=== PATIENT | male | born 1985 | race American Indian/Alaskan Native ===

== ENCOUNTER 2017-04-22 01:18 | Emergency (ER) | payer OTHER ==
[~2017-04-22] VITALS: Ht 170.2 cm; Wt 145.0 kg
[~2017-04-22 01:18] MED LIST: AMLO5TAB2 PO; FERR325T18 PO; LISI-167 PO; LISI-170 PO; LISI40TA PO; METF500T PO; PHEN1SUP77 PR
[2017-04-22] MEDS ORDERED: ALLERGY MED (01:51)
[2017-04-22 02:15] LABS: HEMATOCRIT 42.5 % (39.2-51.8); HEMOGLOBIN 13.6 g/dL (13.7-18.0); WHITE BLOOD COUNT 4.5 x10^3/uL (3.4-10)
[2017-04-22 02:22] LABS: BLOOD UREA NITROGEN 8 mg/dL (7-18)
[2017-04-22 03:29] VITALS: BP 154/72
[2017-04-22] MEDS ORDERED: ONDANSETRON 2MG/ML, 2ML ONE (03:38)
== END 2017-04-22 03:32 | disposition home or self-care (01) ==
LOC: ED 03:05
DX: M54.5 Low back pain (principal); I10 Essential (primary) hypertension; E11.9 Type 2 diabetes mellitus without complications; E87.6 Hypokalemia; J45.909 Unspecified asthma, uncomplicated; E66.9 Obesity, unspecified
CPT/HCPCS: 36415; 74176; 80048; 81001; 82040; 85025; 99285

== ENCOUNTER 2017-06-28 12:52 | Emergency (ER) | payer OTHER ==
[~2017-06-28] VITALS: Ht 172.7 cm; Wt 150.4 kg
[~2017-06-28 12:52] MED LIST changes: +ALLERGY MED
[2017-06-28 12:56] VITALS: BP 183/95
[2017-06-28] MEDS ORDERED: LIDOCAINE 1%, 20ML SQ ONE (13:30)
== END 2017-06-28 14:05 | disposition home or self-care (01) ==
LOC: ED 13:40
DX: L02.213 Cutaneous abscess of chest wall (principal)
CPT/HCPCS: 10060; 82962; 99283; J3490

== ENCOUNTER 2017-07-01 12:53 | Emergency (ER) | payer OTHER ==
[~2017-07-01] VITALS: Ht 172.7 cm; Wt 149.1 kg
[2017-07-01 12:56] VITALS: BP 180/87
== END 2017-07-01 14:13 | disposition home or self-care (01) ==
LOC: ED 13:40
DX: L02.213 Cutaneous abscess of chest wall (principal); E11.9 Type 2 diabetes mellitus without complications; I10 Essential (primary) hypertension; J45.909 Unspecified asthma, uncomplicated
CPT/HCPCS: 99283

== ENCOUNTER 2019-01-15 22:24 | Emergency (ER) | payer OTHER ==
[~2019-01-15] VITALS: Ht 172.7 cm; Wt 148.8 kg
[~2019-01-15 22:24] MED LIST changes: +AMLO-150 PO; -AMLO5TAB2 PO
[2019-01-15] MEDS ORDERED: LORazepam 1MG TABLET PO ONE (23:30)
[2019-01-15] MEDS ORDERED: LORazepam 1MG TABLET ONE (23:32)
[2019-01-16 00:08] LABS: BASOPHILS # (AUTO) 0.12 x10^3/uL (0-0.1); BASOPHILS % (AUTO) 2 % (0-1); EOSINOPHILS # (AUTO) 0.12 x10^3/uL (0-0.4); EOSINOPHILS % (AUTO) 2 % (1-7); LYMPHOCYTES # (AUTO) 2.75 x10^3/uL (1-3.4); LYMPHOCYTES % (AUTO) 50 % (22-44); MD NO; MEAN CORPUSCULAR HEMOGLOBIN 30.2 pg (27.5-34.5); MEAN CORPUSCULAR HGB CONC 32.1 g/dL (33.2-36.2); MEAN CORPUSCULAR VOLUME 94.1 fL (81-97); MEAN PLATELET VOLUME 6.7 fL (7.4-10.4); MONOCYTES # (AUTO) 0.46 x10^3/uL (0.2-0.8); MONOCYTES % (AUTO) 8 % (2-9); NEUTROPHILS # (AUTO) 2.11 x10^3/uL (1.8-6.8); NEUTROPHILS % (AUTO) 38 % (42-75); PLATELET COUNT 245 x10^3/uL (130-400); RED BLOOD COUNT 4.64 x10^6/uL (4.38-5.82)
[2019-01-16 00:15] VITALS: BP 129/70
--- NOTE | 2019-01-16 00:15 | NUR ---
PT PACING AROUND ROOM, RESP RATE 32, SPO2 96%. PT STATES THAT MEDS DID NOT WORK FOR HIM AND THAT HE FEELS ANXIOUS STILL. MICHELLE BELL NOTIFIED.
[2019-01-16 00:16] LABS: ALANINE AMINOTRANSFERASE 43 U/L (12-78); ALBUMIN 3.2 g/dL (3.4-5.0); ANION GAP 12 mmol/L (5-15); CALCIUM 7.6 mg/dL (8.5-10.1); CHLORIDE 107 mmol/L (98-107); CREATININE 0.87 mg/dL (0.7-1.3)
[2019-01-16 00:21] LABS: ALKALINE PHOSPHATASE 87 U/L (45-117); BILIRUBIN,TOTAL 0.3 mg/dL (0.2-1.0); TROPONIN I < 0.015 ng/mL (0.000-0.045)
[2019-01-16 00:23] LABS: AMPHETAMINE SCREEN, URINE Negative (Negative); BARBITURATE SCREEN, URINE Negative (Negative); BENZODIAZEPINE SCREEN, URINE Negative (Negative); CANNABINOID SCREEN, URINE Negative (Negative); COCAINE SCREEN, URINE Negative (Negative); METHADONE SCREEN, URINE Negative (Negative); OPIATE SCREEN, URINE Negative (Negative)
[2019-01-16 01:59] LABS: D-DIMER 0.39 ug/mlFEU (0.00-0.52); INTERNATIONAL NORMALIZED RATIO 1.13 (0.93-1.1); PROTHROMBIN TIME 11.8 Seconds (9.6-11.5)
== END 2019-01-16 02:31 | disposition home or self-care (01) ==
LOC: ED 01-16 02:00
DX: F41.1 Generalized anxiety disorder (principal); F10.120 Alcohol abuse with intoxication, uncomplicated; F17.210 Nicotine dependence, cigarettes, uncomplicated; I10 Essential (primary) hypertension
CPT/HCPCS: 36415; 71046; 80053; 80307; 83880; 84443; 84484; 85025; 85379; 85610; 85730; 93005; 99284

== ENCOUNTER 2019-01-16 21:59 | Emergency (ER) | payer SELFPAY ==
[~2019-01-16] VITALS: Ht 172.7 cm; Wt 148.8 kg
[2019-01-16 22:00] VITALS: BP 160/88
== END 2019-01-16 22:30 | disposition home or self-care (01) ==
LOC: ED 22:08
DX: F41.1 Generalized anxiety disorder (principal); F10.220 Alcohol dependence with intoxication, uncomplicated; I10 Essential (primary) hypertension; J45.909 Unspecified asthma, uncomplicated; E66.9 Obesity, unspecified
CPT/HCPCS: 99284

== ENCOUNTER 2019-02-16 18:11 | Emergency (ER) | payer OTHER ==
[~2019-02-16] VITALS: Ht 172.7 cm; Wt 174.0 kg
--- NOTE | 2019-02-16 18:31 | NUR ---
BIB [facility]. C/O cough, BLE edema, generalized weakness, and NELSON. Patient drinks about 1/5 vodka per day. C/O anxiety. 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 Will continue to monitor.
[2019-02-16 18:43] LABS: BASOPHILS # (AUTO) 0.04 x10^3/uL (0-0.1); BASOPHILS % (AUTO) 1 % (0-1); EOSINOPHILS # (AUTO) 0.15 x10^3/uL (0-0.4); EOSINOPHILS % (AUTO) 2 % (1-7); LYMPHOCYTES # (AUTO) 3.06 x10^3/uL (1-3.4); LYMPHOCYTES % (AUTO) 46 % (22-44); MD NO; MEAN CORPUSCULAR HEMOGLOBIN 30.8 pg (27.5-34.5); MEAN CORPUSCULAR HGB CONC 32.7 g/dL (33.2-36.2); MEAN CORPUSCULAR VOLUME 94.2 fL (81-97); MEAN PLATELET VOLUME 6.7 fL (7.4-10.4); MONOCYTES # (AUTO) 0.72 x10^3/uL (0.2-0.8); MONOCYTES % (AUTO) 11 % (2-9); NEUTROPHILS # (AUTO) 2.69 x10^3/uL (1.8-6.8); NEUTROPHILS % (AUTO) 40 % (42-75); PLATELET COUNT 239 x10^3/uL (130-400); RED BLOOD COUNT 4.67 x10^6/uL (4.38-5.82); RED CELL DISTRIBUTION WIDTH 16.8 % (9.4-14.8)
[2019-02-16 18:54] LABS: ALANINE AMINOTRANSFERASE 84 U/L (12-78); ALBUMIN 3.3 g/dL (3.4-5.0); ANION GAP 10 mmol/L (5-15); CALCIUM 7.9 mg/dL (8.5-10.1); CHLORIDE 109 mmol/L (98-107); CREATININE 1.13 mg/dL (0.7-1.3)
[2019-02-16 18:58] LABS: ALKALINE PHOSPHATASE 106 U/L (45-117); BILIRUBIN,TOTAL 0.4 mg/dL (0.2-1.0); TOTAL PROTEIN 8.7 g/dL (6.4-8.2); TROPONIN I < 0.015 ng/mL (0.000-0.045)
--- NOTE | 2019-02-16 19:10 | NUR ---
MD at bedside discussing POC.
[2019-02-16 19:40] VITALS: BP 137/79
== END 2019-02-16 19:51 | disposition home or self-care (01) ==
LOC: ED 19:35
DX: F41.0 Panic disorder [episodic paroxysmal anxiety] (principal); F10.10 Alcohol abuse, uncomplicated; R05 Cough; I10 Essential (primary) hypertension; F17.200 Nicotine dependence, unspecified, uncomplicated
CPT/HCPCS: 36415; 71045; 80053; 80307; 83735; 83880; 84484; 85025; 93005; 99284

== ENCOUNTER 2020-10-14 15:07 | Inpatient (IN) | payer MEDICAID ==
[~2020-10-14] VITALS: Ht 172.7 cm; Wt 153.0 kg
[~2020-10-14 15:07] MED LIST changes: +ATOR40TA78 PO; +CETI10TA18 PO; +HYDR-826 PO; -LISI40TA PO; +LISI40TA9 PO
[2020-10-14] MEDS ORDERED: ASPIRIN 81 MG TABLET CHEW ONE (15:59)
[2020-10-14] MEDS ORDERED: SODIUM CHLORIDE FLUSH 10ML SYR IVF ONE (16:00)
[2020-10-14] MEDS ORDERED: ASPIRIN 81 MG TABLET CHEW PO ONE (16:00)
--- NOTE | 2020-10-14 16:00 | NUR ---
PT BIB MOM VIA POV. PT REPORTS HAVING SOB W EXERTION WORSE FOR THE PAST FEW DAYS. PT O2 SAT AT 84% RA, PT PLACED ON 2L AND NOW SATTING AT 94%. PT HAS HX OF ASTHMA AND HTN. PT RESTING IN [place], MONITORING IN PLACE, NADN AT THIS TIME, PT REFUSING TO LAY IN GURNEY, PT EDUCATED ON FALL RISK AND IMPORTANCE OF STAYING IN [place], WCTM. 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 PT'S MOM AT BEDSIDE.
[2020-10-14 16:29] LABS: BASOPHILS % (AUTO) 1 % (0-1); EOSINOPHILS % (AUTO) 6 % (1-7); LYMPHOCYTES % (AUTO) 13 % (22-44); MEAN CORPUSCULAR HGB CONC 32.1 g/dL (33.2-36.2); MEAN PLATELET VOLUME 8.3 fL (7.4-10.4); MONOCYTES % (AUTO) 11 % (2-9); NEUTROPHILS % (AUTO) 70 % (42-75); PLATELET COUNT 73 x10^3/uL (130-400); RED BLOOD COUNT 4.91 x10^6/uL (4.38-5.82)
[2020-10-14 16:41] LABS: ALANINE AMINOTRANSFERASE 37 U/L (12-78); ALBUMIN 3.2 g/dL (3.4-5.0); ANION GAP 12 mmol/L (5-15); CALCIUM 6.1 mg/dL (8.5-10.1); CHLORIDE 104 mmol/L (98-107); CREATININE 0.87 mg/dL (0.7-1.3)
[2020-10-14 16:46] LABS: ALKALINE PHOSPHATASE 118 U/L (45-117); BILIRUBIN,TOTAL 2.7 mg/dL (0.2-1.0); TOTAL PROTEIN 9.5 g/dL (6.4-8.2); TROPONIN I < 0.015 ng/mL (0.000-0.045)
[2020-10-14 17:00] LABS: MD MORPH REVIEW ONLY
[2020-10-14 17:01] LABS: ANISOCYTOSIS 1+; OVALOCYTES 1+; TARGET CELLS 1+
[2020-10-14 17:02] LABS: <PLATELET ESTIMATE> DECREASED; <PLT MORPHOLOGY> NORMAL PLT MORPH; POLYCHROMASIA 1+
[2020-10-14] MEDS ORDERED: hydrALAzine 20 MG/ML, 1ML IV ONE (18:30)
--- NOTE | 2020-10-14 18:31 | NUR ---
BREAK RN: PT GOING TO CT.
[2020-10-14] MEDS ORDERED: OMNIPAQUE 350 MG/ML, 100ML BOTTLE ONE (18:46)
[2020-10-14] MEDS ORDERED: hydrALAzine 20 MG/ML, 1ML ONE (19:04)
--- NOTE | 2020-10-14 19:16 | NUR ---
PT RESTING IN [facility], MONITORING IN PLACE, MEDICATED PER EMAR, PER PT NO PAIN OR QUESTIONS AT THIS TIME, WCTM.
[2020-10-14] MEDS ORDERED: POTASSIUM CHLORIDE 20 MEQ TAB.ER.PRT ONE (19:25)
[2020-10-14] MEDS ORDERED: FUROSEMIDE 40 MG/4 ML ONE (19:25)
[2020-10-14] MEDS ORDERED: POTASSIUM CHLORIDE 20 MEQ TAB.ER.PRT PO ONE (19:30)
[2020-10-14] MEDS ORDERED: FUROSEMIDE 40 MG/4 ML IV ONE (19:30)
[2020-10-14] MEDS ORDERED: POTASSIUM CHLORIDE 20 MEQ, MAGNESIUM SULFATE 2 GM, THIAMINE 200 MG, FOLIC ACID 1 MG in ... IV ONE (19:30)
[2020-10-14] MEDS ORDERED: POTASSIUM CHLORIDE 20 MEQ, MAGNESIUM SULFATE 2 GM, THIAMINE 200 MG, FOLIC ACID 1 MG, MV... IV ONE (19:30)
--- NOTE | 2020-10-14 19:55 | NUR ---
PER [facility], DO NOT ADMIN BANANA BAG.
[2020-10-14 20:05] VITALS: BP 169/102
[2020-10-14] MEDS ORDERED: POLYETHYLENE GLYCOL 17 GM PACKET PO PRN (20:30)
[2020-10-14] MEDS ORDERED: BISACODYL 10 MG SUPP PR PRN (20:30)
[2020-10-14] MEDS ORDERED: hydrALAzine 20 MG/ML, 1ML IVPush PRN (20:30)
[2020-10-14] MEDS ORDERED: ONDANSETRON 2MG/ML, 2ML IVPush PRN (20:30)
[2020-10-14] MEDS ORDERED: MAGNESIUM SULFATE PMX 4GM/100M 100 ML IVPB ONE (20:30)
[2020-10-14] MEDS ORDERED: CHLORDIAZEPOXIDE 25 MG CAPSULE PO PRN (21:00)
[2020-10-14] MEDS ORDERED: LORazepam 2 MG/ML, 1ML IVPush PRN (21:00)
[2020-10-14 22:45] VITALS: BP 126/71
[2020-10-14] MEDS: ATORVASTATIN 40 MG TABLET PO SCH (22:46)
[2020-10-14] MEDS: CARVEDILOL 12.5 MG TABLET PO SCH (22:46)
[2020-10-14] MEDS: HEPARIN 5,000 UNITS/ML, 1ML SQ SCH (22:46)
[2020-10-14] MEDS: THIAMINE 100MG TABLET PO SCH (22:47)
[2020-10-14] MEDS: SODIUM CHLORIDE FLUSH 10ML SYR IVF SCH (22:50)
[2020-10-14 22:57] LABS: INTERNATIONAL NORMALIZED RATIO 1.44 (0.93-1.1); PROTHROMBIN TIME 15.3 Seconds (9.6-11.5)
[2020-10-14 23:02] LABS: TROPONIN I < 0.015 ng/mL (0.000-0.045)
[2020-10-15 00:31] VITALS: BP 137/67
[2020-10-15 05:02] LABS: BASOPHILS % (AUTO) 4 % (0-1); EOSINOPHILS % (AUTO) 4 % (1-7); LYMPHOCYTES % (AUTO) 15 % (22-44); MEAN CORPUSCULAR HGB CONC 31.9 g/dL (33.2-36.2); MEAN PLATELET VOLUME 8.9 fL (7.4-10.4); MONOCYTES % (AUTO) 12 % (2-9); NEUTROPHILS % (AUTO) 66 % (42-75); PLATELET COUNT 51 x10^3/uL (130-400); RED BLOOD COUNT 4.45 x10^6/uL (4.38-5.82)
[2020-10-15 05:09] LABS: ALBUMIN 2.7 g/dL (3.4-5.0); ANION GAP 10 mmol/L (5-15); CHLORIDE 102 mmol/L (98-107)
[2020-10-15 05:15] LABS: ALANINE AMINOTRANSFERASE 30 U/L (12-78); ALKALINE PHOSPHATASE 97 U/L (45-117); BILIRUBIN,TOTAL 2.6 mg/dL (0.2-1.0); CREATININE 0.65 mg/dL (0.7-1.3); TOTAL PROTEIN 7.9 g/dL (6.4-8.2); TROPONIN I 0.016 ng/mL (0.000-0.045)
[2020-10-15] MEDS: CARVEDILOL 12.5 MG TABLET PO SCH ×2 (05:38→17:28)
[2020-10-15] MEDS: HEPARIN 5,000 UNITS/ML, 1ML SQ SCH ×3 (05:38→22:52)
[2020-10-15 05:47] LABS: MD SCAN
[2020-10-15] MEDS: FUROSEMIDE 40 MG/4 ML IV SCH ×2 (08:04→17:28)
[2020-10-15] MEDS: POTASSIUM CHLORIDE 20 MEQ TAB.ER.PRT PO SCH ×2 (08:04→17:29)
[2020-10-15 08:21] VITALS: BP 150/92
[2020-10-15] MEDS: MULTIVITAMINS/MINERALS TABLET PO SCH ×2 (09:00→09:41)
[2020-10-15] MEDS: SENNA/DOCUSATE TABLET PO SCH (09:36)
[2020-10-15] MEDS: SODIUM CHLORIDE FLUSH 10ML SYR IVF SCH ×2 (09:40→20:13)
[2020-10-15] MEDS: AMLODIPINE 5 MG TABLET PO SCH (09:40)
[2020-10-15] MEDS: LISINOPRIL 20 MG TABLET PO SCH (09:41)
[2020-10-15] MEDS: THIAMINE 100MG TABLET PO SCH ×2 (09:41→20:13)
[2020-10-15] MEDS: CETIRIZINE 10 MG TABLET PO SCH (09:41)
[2020-10-15] MEDS: FOLIC ACID 1 MG TABLET PO SCH (09:41)
[2020-10-15] MEDS ORDERED: LORazepam 2 MG/ML, 1ML IV PRN ×4 (10:30)
[2020-10-15] MEDS ORDERED: ACETAMINOPHEN 325 MG TABLET PO PRN (10:30)
[2020-10-15] MEDS ORDERED: LORazepam 1MG TABLET PO PRN ×4 (10:30)
[2020-10-15] MEDS ORDERED: LORazepam 0.5MG TABLET PO PRN (10:30)
[2020-10-15] MEDS: CHLORDIAZEPOXIDE 25 MG CAPSULE PO SCH ×3 (10:44→22:52)
[2020-10-15] MEDS ORDERED: THIAMINE 200 MG in DEXTROSE 5% 50 ML IVPB ONE (12:00)
[2020-10-15 13:05] VITALS: BP 145/87
[2020-10-15] MEDS: LORazepam 2 MG/ML, 1ML IV PRN (14:58)
[2020-10-15 18:36] VITALS: BP 159/74
[2020-10-15] MEDS: ATORVASTATIN 40 MG TABLET PO SCH (20:13)
[2020-10-16] MEDS: LORazepam 2 MG/ML, 1ML IV PRN (00:56)
[2020-10-16 01:22] VITALS: BP 150/83
[2020-10-16 04:26] LABS: BASOPHILS % (AUTO) 1 % (0-1); EOSINOPHILS % (AUTO) 5 % (1-7); LYMPHOCYTES % (AUTO) 11 % (22-44); MEAN CORPUSCULAR HEMOGLOBIN 26.1 pg (27.5-34.5); MEAN CORPUSCULAR HGB CONC 32.2 g/dL (33.2-36.2); MEAN PLATELET VOLUME 8.3 fL (7.4-10.4); MONOCYTES % (AUTO) 11 % (2-9); NEUTROPHILS % (AUTO) 73 % (42-75); RED BLOOD COUNT 4.36 x10^6/uL (4.38-5.82); RED CELL DISTRIBUTION WIDTH 21.2 % (9.4-14.8)
[2020-10-16 04:37] LABS: CHLORIDE 102 mmol/L (98-107)
[2020-10-16 04:45] LABS: ALANINE AMINOTRANSFERASE 28 U/L (12-78); ALBUMIN 2.6 g/dL (3.4-5.0); ALKALINE PHOSPHATASE 105 U/L (45-117); ANION GAP 10 mmol/L (5-15); BILIRUBIN,TOTAL 3.5 mg/dL (0.2-1.0); CALCIUM 6.3 mg/dL (8.5-10.1); CREATININE 0.76 mg/dL (0.7-1.3); TOTAL PROTEIN 7.6 g/dL (6.4-8.2)
[2020-10-16 05:33] VITALS: BP 152/80
[2020-10-16] MEDS: CHLORDIAZEPOXIDE 25 MG CAPSULE PO SCH ×4 (05:48→23:58)
[2020-10-16] MEDS: CARVEDILOL 12.5 MG TABLET PO SCH ×2 (05:48→17:37)
[2020-10-16] MEDS: HEPARIN 5,000 UNITS/ML, 1ML SQ SCH (05:54)
[2020-10-16 06:29] LABS: PLATELET COUNT 49 x10^3/uL (130-400)
[2020-10-16 06:30] LABS: MD MORPH REVIEW ONLY
[2020-10-16 06:31] LABS: <PLATELET ESTIMATE> DECREASED; ANISOCYTOSIS 1+; HYPOCHROMIA 1+; OVALOCYTES 1+; POLYCHROMASIA 1+; TARGET CELLS 1+
[2020-10-16 06:32] LABS: LARGE PLATELETS 1+; STOMATOCYTES 1+
[2020-10-16 06:51] VITALS: BP 167/91
[2020-10-16] MEDS: POTASSIUM CHLORIDE 20 MEQ TAB.ER.PRT PO SCH (08:16)
[2020-10-16] MEDS: LISINOPRIL 20 MG TABLET PO SCH (08:19)
[2020-10-16] MEDS: THIAMINE 100MG TABLET PO SCH ×2 (08:20→21:06)
[2020-10-16] MEDS: SENNA/DOCUSATE TABLET PO SCH (08:21)
[2020-10-16] MEDS: FOLIC ACID 1 MG TABLET PO SCH (08:22)
[2020-10-16] MEDS: CETIRIZINE 10 MG TABLET PO SCH (08:22)
[2020-10-16] MEDS: AMLODIPINE 5 MG TABLET PO SCH (08:25)
[2020-10-16] MEDS: MULTIVITAMINS/MINERALS TABLET PO SCH (08:26)
[2020-10-16] MEDS: FUROSEMIDE 40 MG/4 ML IV SCH ×2 (08:27→17:37)
[2020-10-16] MEDS: SODIUM CHLORIDE FLUSH 10ML SYR IVF SCH ×2 (08:27→21:06)
[2020-10-16 12:25] VITALS: BP 137/75
[2020-10-16] MEDS ORDERED: MAGNESIUM SULFATE PMX 4GM/100M 100 ML IVPB ONE (14:00)
[2020-10-16] MEDS ORDERED: POTASSIUM CHLORIDE 20 MEQ TAB.ER.PRT PO SCH (17:00)
[2020-10-16 19:45] VITALS: BP 118/76
[2020-10-16] MEDS: ATORVASTATIN 40 MG TABLET PO SCH (21:06)
[2020-10-17 02:25] VITALS: BP 125/82
[2020-10-17 05:02] LABS: BASOPHILS % (AUTO) 2 % (0-1); EOSINOPHILS % (AUTO) 5 % (1-7); LYMPHOCYTES % (AUTO) 13 % (22-44); MEAN CORPUSCULAR HEMOGLOBIN 26.4 pg (27.5-34.5); MEAN CORPUSCULAR HGB CONC 32.4 g/dL (33.2-36.2); MEAN PLATELET VOLUME 9.2 fL (7.4-10.4); MONOCYTES % (AUTO) 10 % (2-9); NEUTROPHILS % (AUTO) 70 % (42-75); PLATELET COUNT 52 x10^3/uL (130-400); RED BLOOD COUNT 4.51 x10^6/uL (4.38-5.82); RED CELL DISTRIBUTION WIDTH 21.1 % (9.4-14.8)
[2020-10-17 05:10] LABS: ALANINE AMINOTRANSFERASE 22 U/L (12-78); ALBUMIN 2.8 g/dL (3.4-5.0); ANION GAP 9 mmol/L (5-15); CALCIUM 6.7 mg/dL (8.5-10.1); CHLORIDE 100 mmol/L (98-107); CREATININE 0.87 mg/dL (0.7-1.3)
[2020-10-17 05:12] LABS: ALKALINE PHOSPHATASE 110 U/L (45-117); BILIRUBIN,TOTAL 3.7 mg/dL (0.2-1.0); TOTAL PROTEIN 8.2 g/dL (6.4-8.2)
[2020-10-17 06:16] LABS: MD SCAN
[2020-10-17] MEDS ORDERED: POTASSIUM CHLORIDE 20 MEQ TAB.ER.PRT PO SCH (07:30)
== END 2020-10-17 07:48 | disposition left against medical advice (07) | DRG 189 ==
LOC: ED 20:13 → EDIP 20:17 → UNDOADMIN 20:17 → EDIP 20:24 → 4WST 20:24 → EDIP 20:26
PROVIDERS: ADMIT Internal Medicine; ATTEND Internal Medicine
DX: J96.00 Acute respiratory failure, unspecified whether with hypoxia or hypercapnia (principal); D68.9 Coagulation defect, unspecified; F10.239 Alcohol dependence with withdrawal, unspecified; Z68.43 Body mass index [BMI] 50.0-59.9, adult; D50.9 Iron deficiency anemia, unspecified; E11.9 Type 2 diabetes mellitus without complications; E66.01 Morbid (severe) obesity due to excess calories; E78.5 Hyperlipidemia, unspecified; E83.42 Hypomagnesemia; E83.51 Hypocalcemia; E87.6 Hypokalemia; F10.229 Alcohol dependence with intoxication, unspecified; F17.200 Nicotine dependence, unspecified, uncomplicated; F41.9 Anxiety disorder, unspecified; I11.0 Hypertensive heart disease with heart failure; I16.0 Hypertensive urgency; I50.9 Heart failure, unspecified; K70.9 Alcoholic liver disease, unspecified; K80.20 Calculus of gallbladder without cholecystitis without obstruction; Z81.1 Family history of alcohol abuse and dependence; Z82.49 Family history of ischemic heart disease and other diseases of the circulatory system; Z83.3 Family history of diabetes mellitus
CPT/HCPCS: 36415; 71045; 71275; 76700; 80053; 80320; 82306; 82330; 83735; 83880; 83970; 84132; 84484; 85025; 85379; 85610; 93005; 96374; 99291; G0378; J1644; J1940; J3411; Q9967; G0480; J0360; J2060; J3475; Q0177

== ENCOUNTER 2021-03-10 15:24 | Inpatient (IN) | payer MEDICAID ==
[~2021-03-10] VITALS: Ht 167.6 cm; Wt 130.3 kg
[~2021-03-10 15:24] MED LIST changes: +FURO40TA6 PO; +SPIR100T4 PO
[2021-03-10] MEDS ORDERED: SODIUM CHLORIDE 0.9% 1,000ML IVBOLUS ONE (16:30)
[2021-03-10] MEDS ORDERED: NYSTATIN TOPICAL POWDER 15GM TP ONE ×2 (16:30→17:30)
[2021-03-10] MEDS ORDERED: ONDANSETRON 2MG/ML, 2ML IVPush ONE (16:30)
[2021-03-10] MEDS ORDERED: AMPICILLIN/SULBACTAM 3 GM in SODIUM CHLORIDE 0.9% 100 ML IV ONE (16:30)
[2021-03-10] MEDS ORDERED: ONDANSETRON 2MG/ML, 2ML ONE (16:40)
[2021-03-10] MEDS ORDERED: MORPHINE SULFATE 4 MG/ML, 1ML ONE ×2 (16:40→18:00)
[2021-03-10] MEDS: MORPHINE SULFATE 4 MG/ML, 1ML IVPush PRN ×2 (16:43→18:01)
[2021-03-10 16:51] LABS: BASOPHILS % (AUTO) 1 % (0-1); EOSINOPHILS % (AUTO) 1 % (1-7); LYMPHOCYTES % (AUTO) 13 % (22-44); MEAN CORPUSCULAR HGB CONC 33.7 g/dL (33.2-36.2); MEAN PLATELET VOLUME 7.2 fL (7.4-10.4); MONOCYTES % (AUTO) 12 % (2-9); NEUTROPHILS % (AUTO) 74 % (42-75); PLATELET COUNT 173 x10^3/uL (130-400); RED BLOOD COUNT 3.43 x10^6/uL (4.38-5.82); RED CELL DISTRIBUTION WIDTH 13.7 % (9.4-14.8)
[2021-03-10 17:02] LABS: ALANINE AMINOTRANSFERASE 16 U/L (12-78); ALBUMIN 2.8 g/dL (3.4-5.0); ANION GAP 15 mmol/L (5-15); CALCIUM 9.1 mg/dL (8.5-10.1); CHLORIDE 98 mmol/L (98-107); CREATININE 1.83 mg/dL (0.7-1.3)
[2021-03-10 17:04] LABS: ALKALINE PHOSPHATASE 293 U/L (45-117); BILIRUBIN,TOTAL 2.7 mg/dL (0.2-1.0); TOTAL PROTEIN 10.6 g/dL (6.4-8.2)
[2021-03-10] MEDS ORDERED: CLINDAMYCIN PMX 900MG/50ML 50 ML ONE (17:17)
[2021-03-10] MEDS ORDERED: CLINDAMYCIN PMX 900MG/50ML 50 ML IV ONE (17:30)
[2021-03-10] MEDS ORDERED: OMNIPAQUE 350 MG/ML, 100ML BOTTLE ONE (17:58)
--- NOTE | 2021-03-10 18:19 | NUR ---
pt denies ability to provide ua at this time
[2021-03-10 19:00] LABS: MICROSCOPIC INDICATED
--- NOTE | 2021-03-10 19:05 | NUR ---
Report from Gama LOWERY
--- NOTE | 2021-03-10 20:21 | NUR ---
Report to Carmen LOWERY
[2021-03-10] MEDS ORDERED: THIAMINE 200 MG in DEXTROSE 5% 50 ML IVPB ONE (21:30)
[2021-03-10] MEDS ORDERED: PHARMACY MAY ADJ FOR RENAL FX MC PRN (21:30)
[2021-03-10] MEDS ORDERED: ALUMINUM/MAG/SIMETHICONE 30 ML UDC PO PRN (21:30)
[2021-03-10] MEDS ORDERED: POTASSIUM CHLORIDE 20 MEQ, MAGNESIUM SULFATE 1 GM, THIAMINE 200 MG, FOLIC ACID 1 MG, MV... IV SCH (21:30)
[2021-03-10] MEDS ORDERED: LORazepam 2 MG/ML, 1ML IV PRN ×4 (21:30)
[2021-03-10] MEDS ORDERED: GABA-826 PO (22:02)
[2021-03-10] MEDS ORDERED: hydroxizine PO (22:05)
[2021-03-10] MEDS: HEPARIN 5,000 UNITS/ML, 1ML SQ SCH (22:53)
[2021-03-10] MEDS: OXYcodone IR 5MG TABLET PO PRN (22:54)
[2021-03-10] MEDS: MELATONIN 5 MG TABLET PO PRN (22:55)
[2021-03-10 22:57] LABS: BASOPHILS % (AUTO) 1 % (0-1); EOSINOPHILS % (AUTO) 2 % (1-7); LYMPHOCYTES % (AUTO) 16 % (22-44); MEAN CORPUSCULAR HEMOGLOBIN 34.5 pg (27.5-34.5); MEAN CORPUSCULAR HGB CONC 34.1 g/dL (33.2-36.2); MEAN PLATELET VOLUME 7.4 fL (7.4-10.4); MONOCYTES % (AUTO) 14 % (2-9); NEUTROPHILS % (AUTO) 66 % (42-75); PLATELET COUNT 122 x10^3/uL (130-400); RED BLOOD COUNT 3.09 x10^6/uL (4.38-5.82); RED CELL DISTRIBUTION WIDTH 13.6 % (9.4-14.8)
[2021-03-10] MEDS: AMPICILLIN/SULBACTAM 3 GM in SODIUM CHLORIDE 0.9% 100 ML IV SCH (22:59)
[2021-03-10 23:04] LABS: ALANINE AMINOTRANSFERASE 13 U/L (12-78); ALBUMIN 2.2 g/dL (3.4-5.0); ANION GAP 11 mmol/L (5-15); CALCIUM 8.8 mg/dL (8.5-10.1); CHLORIDE 100 mmol/L (98-107); CREATININE 1.35 mg/dL (0.7-1.3)
[2021-03-10 23:09] LABS: ALKALINE PHOSPHATASE 231 U/L (45-117); BILIRUBIN,TOTAL 2.1 mg/dL (0.2-1.0); TOTAL PROTEIN 8.9 g/dL (6.4-8.2)
[2021-03-11] MEDS ORDERED: CHLORDIAZEPOXIDE 10 MG CAPSULE PO ONE (00:30)
[2021-03-11 01:09] VITALS: BP 135/85
[2021-03-11] MEDS: CLINDAMYCIN PMX 900MG/50ML 50 ML IV SCH ×3 (02:22→21:01)
[2021-03-11 04:56] LABS: BASOPHILS % (AUTO) 1 % (0-1); EOSINOPHILS % (AUTO) 3 % (1-7); LYMPHOCYTES % (AUTO) 15 % (22-44); MEAN CORPUSCULAR HEMOGLOBIN 34.7 pg (27.5-34.5); MEAN CORPUSCULAR HGB CONC 34.1 g/dL (33.2-36.2); MEAN PLATELET VOLUME 7.4 fL (7.4-10.4); MONOCYTES % (AUTO) 14 % (2-9); NEUTROPHILS % (AUTO) 66 % (42-75); PLATELET COUNT 116 x10^3/uL (130-400); RED BLOOD COUNT 3.12 x10^6/uL (4.38-5.82); RED CELL DISTRIBUTION WIDTH 13.5 % (9.4-14.8)
[2021-03-11] MEDS: AMPICILLIN/SULBACTAM 3 GM in SODIUM CHLORIDE 0.9% 100 ML IV SCH ×4 (04:57→23:09)
[2021-03-11 04:58] LABS: ALBUMIN 2.2 g/dL (3.4-5.0); ANION GAP 8 mmol/L (5-15); CALCIUM 9.3 mg/dL (8.5-10.1); CHLORIDE 103 mmol/L (98-107)
[2021-03-11 05:01] LABS: ALANINE AMINOTRANSFERASE 13 U/L (12-78); ALKALINE PHOSPHATASE 228 U/L (45-117); BILIRUBIN,TOTAL 2.1 mg/dL (0.2-1.0); CREATININE 1.16 mg/dL (0.7-1.3); TOTAL PROTEIN 8.6 g/dL (6.4-8.2)
[2021-03-11] MEDS: NYSTATIN TOPICAL POWDER 15GM TP SCH ×4 (06:00→20:48)
[2021-03-11] MEDS: HEPARIN 5,000 UNITS/ML, 1ML SQ SCH ×3 (06:26→20:48)
[2021-03-11 07:53] VITALS: BP 138/84
[2021-03-11] MEDS: MAGNESIUM OXIDE 400 MG TABLET PO SCH ×2 (09:26→20:48)
[2021-03-11] MEDS: GABAPENTIN 300 MG CAPSULE PO SCH (09:26)
[2021-03-11 12:56] VITALS: BP 112/74
[2021-03-11 19:01] VITALS: BP 128/66
[2021-03-11] MEDS ORDERED: IBUPROFEN 600 MG TABLET PO ONE (20:00)
[2021-03-11] MEDS: LORazepam 2 MG/ML, 1ML IV PRN (20:48)
[2021-03-11] MEDS: OXYcodone IR 5MG TABLET PO PRN (20:55)
[2021-03-11] MEDS: HYDROCORTISONE CRM 2.5%, 20GM TP SCH (21:00)
[2021-03-12 00:02] VITALS: BP 106/68
[2021-03-12] MEDS: LORazepam 2 MG/ML, 1ML IV PRN ×2 (00:29→05:41)
[2021-03-12] MEDS: CLINDAMYCIN PMX 900MG/50ML 50 ML IV SCH ×3 (04:38→21:11)
[2021-03-12] MEDS: HEPARIN 5,000 UNITS/ML, 1ML SQ SCH ×3 (05:41→21:09)
[2021-03-12] MEDS: AMPICILLIN/SULBACTAM 3 GM in SODIUM CHLORIDE 0.9% 100 ML IV SCH ×4 (05:41→22:57)
[2021-03-12] MEDS: NYSTATIN TOPICAL POWDER 15GM TP SCH ×4 (05:42→21:00)
[2021-03-12 07:18] VITALS: BP 105/69
[2021-03-12] MEDS: HYDROCORTISONE CRM 2.5%, 20GM TP SCH ×2 (09:00→21:00)
[2021-03-12] MEDS: GABAPENTIN 300 MG CAPSULE PO SCH (09:44)
[2021-03-12] MEDS: OXYcodone IR 5MG TABLET PO PRN ×2 (09:45→17:50)
[2021-03-12] MEDS: MAGNESIUM OXIDE 400 MG TABLET PO SCH ×2 (09:45→21:08)
[2021-03-12 13:23] VITALS: BP 115/75
[2021-03-12 20:16] VITALS: BP 116/72
[2021-03-12] MEDS: MELATONIN 5 MG TABLET PO PRN (21:08)
[2021-03-13 00:39] VITALS: BP 118/76
[2021-03-13] MEDS: OXYcodone IR 5MG TABLET PO PRN ×3 (02:19→20:05)
[2021-03-13] MEDS: CLINDAMYCIN PMX 900MG/50ML 50 ML IV SCH ×3 (04:02→20:05)
[2021-03-13] MEDS: AMPICILLIN/SULBACTAM 3 GM in SODIUM CHLORIDE 0.9% 100 ML IV SCH ×4 (05:11→23:03)
[2021-03-13] MEDS: HEPARIN 5,000 UNITS/ML, 1ML SQ SCH ×3 (05:11→20:05)
[2021-03-13] MEDS: NYSTATIN TOPICAL POWDER 15GM TP SCH ×4 (05:12→20:05)
[2021-03-13 06:42] VITALS: BP 117/65
[2021-03-13 08:04] LABS: BASOPHILS % (AUTO) 1 % (0-1); EOSINOPHILS % (AUTO) 3 % (1-7); LYMPHOCYTES % (AUTO) 17 % (22-44); MEAN CORPUSCULAR HEMOGLOBIN 34.1 pg (27.5-34.5); MEAN CORPUSCULAR HGB CONC 33.7 g/dL (33.2-36.2); MEAN PLATELET VOLUME 7.4 fL (7.4-10.4); MONOCYTES % (AUTO) 15 % (2-9); NEUTROPHILS % (AUTO) 64 % (42-75); PLATELET COUNT 129 x10^3/uL (130-400); RED BLOOD COUNT 2.95 x10^6/uL (4.38-5.82); RED CELL DISTRIBUTION WIDTH 13.7 % (9.4-14.8)
[2021-03-13 08:17] LABS: ALANINE AMINOTRANSFERASE 11 U/L (12-78); ALBUMIN 1.7 g/dL (3.4-5.0); ANION GAP 6 mmol/L (5-15); CALCIUM 8.1 mg/dL (8.5-10.1); CHLORIDE 99 mmol/L (98-107)
[2021-03-13 08:20] LABS: ALKALINE PHOSPHATASE 183 U/L (45-117); BILIRUBIN,TOTAL 1.8 mg/dL (0.2-1.0); TOTAL PROTEIN 7.5 g/dL (6.4-8.2)
[2021-03-13] MEDS: GABAPENTIN 300 MG CAPSULE PO SCH (09:23)
[2021-03-13] MEDS: HYDROCORTISONE CRM 2.5%, 20GM TP SCH ×2 (09:23→20:05)
[2021-03-13] MEDS: MAGNESIUM OXIDE 400 MG TABLET PO SCH ×2 (09:23→20:05)
[2021-03-13] MEDS ORDERED: MAGNESIUM SULFATE PMX 4GM/100M 100 ML IVPB ONE (10:00)
[2021-03-13 12:38] VITALS: BP 128/78
[2021-03-13 18:42] VITALS: BP 112/73
[2021-03-14 00:11] VITALS: BP 109/71
[2021-03-14] MEDS: HEPARIN 5,000 UNITS/ML, 1ML SQ SCH ×3 (04:14→20:42)
[2021-03-14] MEDS: CLINDAMYCIN PMX 900MG/50ML 50 ML IV SCH (04:14)
[2021-03-14 05:13] LABS: BASOPHILS % (AUTO) 1 % (0-1); EOSINOPHILS % (AUTO) 4 % (1-7); LYMPHOCYTES % (AUTO) 19 % (22-44); MEAN CORPUSCULAR HEMOGLOBIN 34.4 pg (27.5-34.5); MEAN PLATELET VOLUME 7.5 fL (7.4-10.4); MONOCYTES % (AUTO) 15 % (2-9); NEUTROPHILS % (AUTO) 61 % (42-75); PLATELET COUNT 140 x10^3/uL (130-400); RED BLOOD COUNT 2.95 x10^6/uL (4.38-5.82); RED CELL DISTRIBUTION WIDTH 13.8 % (9.4-14.8)
[2021-03-14] MEDS: AMPICILLIN/SULBACTAM 3 GM in SODIUM CHLORIDE 0.9% 100 ML IV SCH ×4 (05:16→22:58)
[2021-03-14] MEDS: NYSTATIN TOPICAL POWDER 15GM TP SCH ×4 (05:17→20:42)
[2021-03-14 05:20] LABS: CHLORIDE 100 mmol/L (98-107)
[2021-03-14 05:31] LABS: ALANINE AMINOTRANSFERASE 11 U/L (12-78); ALBUMIN 1.7 g/dL (3.4-5.0); ALKALINE PHOSPHATASE 177 U/L (45-117); ANION GAP 8 mmol/L (5-15); BILIRUBIN,TOTAL 1.6 mg/dL (0.2-1.0); CALCIUM 8.3 mg/dL (8.5-10.1); CREATININE 0.79 mg/dL (0.7-1.3); TOTAL PROTEIN 7.2 g/dL (6.4-8.2)
[2021-03-14 07:15] VITALS: BP 106/69
[2021-03-14] MEDS: MAGNESIUM OXIDE 400 MG TABLET PO SCH ×2 (08:38→20:42)
[2021-03-14] MEDS: GABAPENTIN 300 MG CAPSULE PO SCH (08:38)
[2021-03-14] MEDS: HYDROCORTISONE CRM 2.5%, 20GM TP SCH ×2 (08:39→20:42)
[2021-03-14] MEDS ORDERED: MAGNESIUM SULFATE PMX 4GM/100M 100 ML IVPB ONE (10:30)
[2021-03-14] MEDS ORDERED: FLUCONAZOLE 200 MG/100 ML 100 ML IV SCH (10:30)
[2021-03-14 12:05] VITALS: BP 112/69
[2021-03-14] MEDS: OXYcodone IR 5MG TABLET PO PRN ×2 (16:29→22:58)
[2021-03-14] MEDS: FUROSEMIDE 20 MG/2 ML IV SCH (16:33)
[2021-03-14 19:25] VITALS: BP 119/64
[2021-03-15 01:21] VITALS: BP 106/61
[2021-03-15 04:51] LABS: BASOPHILS % (AUTO) 1 % (0-1); EOSINOPHILS % (AUTO) 5 % (1-7); LYMPHOCYTES % (AUTO) 22 % (22-44); MEAN CORPUSCULAR HEMOGLOBIN 34.4 pg (27.5-34.5); MEAN PLATELET VOLUME 7.5 fL (7.4-10.4); MONOCYTES % (AUTO) 17 % (2-9); NEUTROPHILS % (AUTO) 55 % (42-75); PLATELET COUNT 170 x10^3/uL (130-400); RED BLOOD COUNT 2.87 x10^6/uL (4.38-5.82); RED CELL DISTRIBUTION WIDTH 13.9 % (9.4-14.8)
[2021-03-15 05:01] LABS: ALBUMIN 1.8 g/dL (3.4-5.0); ANION GAP 7 mmol/L (5-15); CALCIUM 8.3 mg/dL (8.5-10.1); CHLORIDE 98 mmol/L (98-107)
[2021-03-15 05:05] LABS: ALANINE AMINOTRANSFERASE 10 U/L (12-78); ALKALINE PHOSPHATASE 175 U/L (45-117); BILIRUBIN,TOTAL 1.5 mg/dL (0.2-1.0); CREATININE 0.75 mg/dL (0.7-1.3); TOTAL PROTEIN 7.1 g/dL (6.4-8.2)
[2021-03-15] MEDS: NYSTATIN TOPICAL POWDER 15GM TP SCH ×2 (05:08→11:21)
[2021-03-15] MEDS: HEPARIN 5,000 UNITS/ML, 1ML SQ SCH ×2 (05:08→12:30)
[2021-03-15] MEDS: AMPICILLIN/SULBACTAM 3 GM in SODIUM CHLORIDE 0.9% 100 ML IV SCH ×2 (05:09→11:21)
[2021-03-15] MEDS: MAGNESIUM OXIDE 400 MG TABLET PO SCH (07:46)
[2021-03-15] MEDS: GABAPENTIN 300 MG CAPSULE PO SCH (07:46)
[2021-03-15] MEDS: HYDROCORTISONE CRM 2.5%, 20GM TP SCH (07:46)
[2021-03-15] MEDS: FUROSEMIDE 20 MG/2 ML IV SCH (07:46)
[2021-03-15 08:30] VITALS: BP 105/72
[2021-03-15] MEDS ORDERED: FLUC200T PO (13:18)
[2021-03-15] MEDS ORDERED: AMOX1TAB64 PO (13:18)
[2021-03-15] MEDS ORDERED: NYST15PO2 TP (13:18)
[2021-03-15 14:55] VITALS: BP 133/85
== END 2021-03-15 15:15 | disposition home or self-care (01) | DRG 602 ==
LOC: ED 21:10 → 4NW 21:11
PROVIDERS: ADMIT Internal Medicine; ATTEND Internal Medicine
DX: L03.311 Cellulitis of abdominal wall (principal); E43 Unspecified severe protein-calorie malnutrition; N17.0 Acute kidney failure with tubular necrosis; E87.1 Hypo-osmolality and hyponatremia; E87.2 Acidosis; I50.30 Unspecified diastolic (congestive) heart failure; I85.10 Secondary esophageal varices without bleeding; Z68.42 Body mass index [BMI] 45.0-49.9, adult; F10.239 Alcohol dependence with withdrawal, unspecified; N49.2 Inflammatory disorders of scrotum; L03.315 Cellulitis of perineum; L03.314 Cellulitis of groin; B35.6 Tinea cruris; E11.42 Type 2 diabetes mellitus with diabetic polyneuropathy; E66.01 Morbid (severe) obesity due to excess calories; E83.42 Hypomagnesemia; E86.0 Dehydration; F41.0 Panic disorder [episodic paroxysmal anxiety]; G62.1 Alcoholic polyneuropathy; Y90.9 Presence of alcohol in blood, level not specified; I11.0 Hypertensive heart disease with heart failure; J45.909 Unspecified asthma, uncomplicated; K70.30 Alcoholic cirrhosis of liver without ascites; L30.4 Erythema intertrigo; N50.89 Other specified disorders of the male genital organs; Z79.899 Other long term (current) drug therapy
CPT/HCPCS: 36415; 72193; 80053; 80320; 81001; 83036; 83540; 83550; 83605; 83735; 83880; 84100; 84550; 85025; 87040; 87077; 87086; 93005; 96365; 96375; 96376; 99285; G0378; J0295; J1644; J2405; J3411; J3475; J3480; Q9967; G0480; J1450; J1940; J2060; J2270; J7030